=== PATIENT | female | born 1960 | race Caucasian/White ===

== ENCOUNTER 2016-04-01 01:59 | Emergency (ER) | payer OTHER ==
[~2016-04-01] VITALS: Ht 162.6 cm; Wt 90.7 kg
--- NOTE | 2016-04-01 02:20 | ED CARDIAC/CP/PALPITATIONS ---
History of Present Illness General Chief Complaint: Chest Pain Stated Complaint: LEFT SIDED SHARP CHEST PAIN+EPIGASTRIC GAS PAIN Source: patient Exam Limitations: no limitations Vital Signs & Intake/Output Vital Signs & Intake/Output Vital Signs Date Time Temp Pulse Resp B/P Pulse O2 O2 Flow FiO2 Ox Delivery Rate 04/01 0555 80 16 142/80 95 Room Air 04/01 0310 80 16 95 Room Air 04/01 0250 97 Room Air Room Air 04/01 0211 97.3 64 18 169/85 96 Room Air Allergies Coded Allergies: NO KNOWN ALLERGIES (06/21/13) Reconcile Medications Amoxicillin/Potassium Clav (Augmentin 875-125 Tablet) 875 MG-125 MG TABLET 1 TAB PO BID pneumonia Triage Note: SHARP LT SIDED HCHEST PAIN ON AND OFF FOR 4 HRS NO PAIN AT PRESENT PT JUST GETTING OVER URI Triage Nurses Notes Reviewed? yes Onset: Gradual Duration: hour(s):, gone now Timing: recent history Quality/Severity: mild, moderate Location: left sided chest pain Radiation: no radiation Activities at Onset: none Prior Chest Pain/Card Workup: no prior chest pain Modifying Factors: Improves With: rest. Worsens With: palpation. Associated Symptoms: left sided chest pain. HPI: 55 yo woman h/o diabetes, presents with left sided chest pain that began between 7-8pm yesterday (7-8 hours ago), which has since resolved approximately 1 hour prior to arrival. She notes that the pain was non radiating, not associated with dizziness, syncopal symptoms, radiation. She notes that it was focally on the left chest, worse when she pressed it. Past History Travel History Traveled to [place] past 21 day No Medical History Any Pertinent Medical History? see below for history Neurological: NONE EENT: NONE Cardiovascular: hypertension Respiratory: NONE Gastrointestinal: NONE Hepatic: NONE Renal: NONE Musculoskeletal: NONE Psychiatric: NONE Endocrine: diabetes Blood Disorders: NONE Cancer(s): NONE Surgical History Surgical History: none Psychosocial History What is your primary language Turkish Tobacco Use: Never used Family History Hx Contributory? No Review of Systems Review of Systems Constitutional: Reports: no symptoms. EENTM: Reports: no symptoms. Respiratory: Reports: no symptoms. Cardiovascular: Reports: no symptoms. GI: Reports: no symptoms. Genitourinary: Reports: no symptoms. Musculoskeletal: Reports: no symptoms. Skin: Reports: no symptoms. Neurological/Psychological: Reports: no symptoms. Hematologic/Endocrine: Reports: no symptoms. Immunologic/Allergic: Reports: no symptoms. All Other Systems: Reviewed and Negative Physical Exam Physical Exam General Appearance: well developed/nourished, no apparent distress, alert Head: atraumatic, normal appearance Eyes: Bilateral: normal appearance. Ears, Nose, Throat: normal pharynx, normal ENT inspection Neck: normal inspection, supple, full range of motion Respiratory: normal breath sounds, no respiratory distress, quiet respiration, lungs clear, left sided focal chest wall tenderness to palpation Cardiovascular: regular rate/rhythm Gastrointestinal: normal bowel sounds, soft, non-tender, no organomegaly Back: normal inspection, normal range of motion Extremities: normal inspection Neurologic/Psych: no motor/sensory deficits, awake, alert, oriented x 3 Skin: intact, normal color, warm/dry Core Measures ACS in differential dx? No Severe Sepsis Present: No Septic Shock Present: No Progress Differential Diagnosis: chest pain vs rib cage pain vs other... i doubt mi, unstable angina, PE. Plan of Care: Orders Procedure Date/time Status TROPONIN LEVEL 04/01 0520 Complete EKG 04/01 0520 Active TROPONIN LEVEL 04/01 0206 Complete LIPASE 04/01 0206 Complete HEPATIC FUNCTION PANEL 04/01 0206 Complete D-DIMER 04/01 0206 Complete CBC WITHOUT DIFFERENTIAL 04/01 0206 Complete BASIC METABOLIC PANEL 04/01 0206 Complete AMYLASE 04/01 0206 Complete EKG 04/01 0202 Active Laboratory Tests 04/01/16 0500: Troponin I < 0.01 04/01/16 0220: Anion Gap 14, Estimated GFR > 60, BUN/Creatinine Ratio 20.0, Glucose 184 H, Calcium 9.5, Total Bilirubin 0.4, Direct Bilirubin 0.4, AST 31, ALT 58 H, Alkaline Phosphatase 147 H, Troponin I < 0.01, Total Protein 7.8, Albumin 4.4, Amylase 36, Lipase 66, D-Dimer < 200, CBC w Diff NO MAN DIFF REQ, RBC 5.54 H, MCV 84.1, MCH 28.8, RDW 12.1, MPV 8.4, Gran % 57.1, Lymphocytes % 35.9, Monocytes % 5.1, Eosinophils % 1.5, Basophils % 0.4, Absolute Granulocytes 3.8, Absolute Lymphocytes 2.4, Absolute Monocytes 0.3, Absolute Eosinophils 0.1, Absolute Basophils 0, PUBS MCHC 34.3 Diagnostic Imaging: Viewed by Me: Radiology Read. Discussed w/RAD: Radiology Read. CXR Impression: hazy right opacity c/w atelectasis vs pneumonia Initial ED EKG: normal axis, normal intervals, normal p-waves, normal QRS complex, normal sinus rhythm Repeat EKG: unchanged (non specific changes) Comments: PATIENT: BANDAR BAILON PRESENT AGE: 55 PATIENT ACCOUNT NO: [id number] : 56 LOCATION: [facility] ORDERING PHYSICIAN: NILESH ARIZA MD SERVICE DATE: 04/01/16 EXAM TYPE: RAD - XRY-PORTABLE CHEST XRAY EXAMINATION: XR PORTABLE CHEST CLINICAL INFORMATION: Chest pain COMPARISON: None. TECHNIQUE: Portable view of the chest was obtained. FINDINGS: Cardiac leads overlie the chest. The lungs are well expanded. Hazy right basilar opacity. No edema or effusion. No pneumothorax. The cardiomediastinal silhouette is within normal limits. No acute osseous abnormality. IMPRESSION: Hazy right basilar opacity could represent atelectasis or pneumonia. DICTATED BY: KERRI MEYERS MD DATE/TIME DICTATED:04/01/16247 REGISTRAR MUSEUM:[facility] DATE/TIME TRANSCRIBED:04/01/16247 CONFIDENTIAL, DO NOT COPY WITHOUT APPROPRIATE AUTHORIZATION. <Electronically signed in Other Vendor System> SIGNED BY: LUIGI KULKARNI,KERRI 04/01 0252 Departure Departure Disposition: HOME OR SELF CARE Condition: Stable Clinical Impression Primary Impression: Chest pain Referrals: BAM KULKARNI,JILL Mota (PCP/Family) Departure Forms: Customer Survey General Discharge Information Prescriptions: Current Visit Scripts Amoxicillin/Potassium Clav (Augmentin 875-125 Tablet) 1 TAB PO BID #20 TAB Comments 04/01/16, 4:35am... pt feeling well... no chest pain in ED... trop/dimer negative. ekg benign... cxr suggestive of pneumonia vs atelectasis... will treat with augmentin... will draw trop #2/ekg#2 at 5am. 04/01/16, 5:58am... pt feeling well... no chest pain throughout ED stay... ekg is nonspecific... pt will follow up with PMD and with cardiology, will complete course of antibiotics. Critical Care Note Critical Care Note Critical Care Time: non-applicable
[2016-04-01 02:52] LABS: ABSOLUTE BASOPHIL COUNT 0 /CUMM (0.0-0.2); ABSOLUTE EOSINOPHIL COUNT 0.1 /CUMM (0.0-0.7); ABSOLUTE GRANULOCYTE CT 3.8 /CUMM (1.4-6.5); ABSOLUTE LYMPH COUNT 2.4 /CUMM (1.2-3.4); ABSOLUTE MONOCYTE COUNT 0.3 /CUMM (0.10-0.60); BASOPHIL % 0.4 % (0.0-2.0); EOSINOPHIL % 1.5 % (0-5); GRANULOCYTE % 57.1 % (42.2-75.2); HEMATOCRIT 46.6 % (37-47); MEAN CORPUSCULAR HGB 28.8 PG (27.0-31.0); MEAN CORPUSCULAR HGB CONC 34.3 G/DL (33.0-37.0); MEAN CORPUSCULAR VOLUME 84.1 FL (81.0-99.0); MEAN PLATELET VOLUME 8.4 FL (7.4-10.4); PLATELET COUNT 163 /CUMM (130-400); RBC DISTRIBUTION WIDTH 12.1 % (11.5-14.5); RED BLOOD CELL CT 5.54 /CUMM (4.20-5.40); WHITE BLOOD CELL COUNT 6.7 /CUMM (4.8-10.8)
--- NOTE | 2016-04-01 02:52 | RADIOLOGY REPORT ---
EXAMINATION: XR PORTABLE CHEST CLINICAL INFORMATION: Chest pain COMPARISON: None. TECHNIQUE: Portable view of the chest was obtained. FINDINGS: Cardiac leads overlie the chest. The lungs are well expanded. Hazy right basilar opacity. No edema or effusion. No pneumothorax. The cardiomediastinal silhouette is within normal limits. No acute osseous abnormality. IMPRESSION: Hazy right basilar opacity could represent atelectasis or pneumonia.
[2016-04-01] MEDS ORDERED: AUGMENTIN 875-1 EACH PO (04:37)
[2016-04-01 05:55] VITALS: BP 142/80
== END 2016-04-01 06:00 ==
LOC: ERH 01:59
PROVIDERS: Pediatrics
DX: R07.9 Chest pain, unspecified (principal)
CPT/HCPCS: 93005; 93010; J3490